=== PATIENT | female | born 1970 | race African-American/Black ===

== ENCOUNTER 2019-11-11 04:42 | Day surgery (SDC) | payer OTHER ==
[2019-11-10 13:20] VITALS: BMI 29.6
--- OUTSIDE RECORDS SUMMARY | 2019-11-11 04:46 | XMS ---
:1970 Author Organization [facility] Support Name Relationship Address Phone [facility] [place] [address] [facility] [address] [place] [address] JERED ORTA SON [address] [phone] [place] [address] Re-disclosure Warning The records that you are about to access may contain information from federally- assisted alcohol or drug abuse programs. If such information is present, then the following federally mandated warning applies: This information has been disclosed to you from records protected by federal confidentiality rules (42 CFR part 2). The federal rules prohibit you from making any further disclosure of this information unless further disclosure is expressly permitted by the written consent of the person to whom it pertains or as otherwise permitted by 42 CFR part 2. A general authorization for the release of medical or other information is NOT sufficient for this purpose. The Federal rules restrict any use of the information to criminally investigate or prosecute any alcohol or drug abuse patient.The records that you are about to access may contain highly sensitive health information, the redisclosure of which is protected by Article 27-F of the [facility] Public Health law. If you continue you may haveaccess to information: Regarding HIV / AIDS; Provided by facilities licensed or operated by the [facility] Office of Mental Health; or Provided by the [facility] Office for People With Developmental Disabilities. If such information is present, then the following [facility] mandated warning applies: This information has been disclosed to you from confidential records which are protected by state law. State law prohibits you from making any further disclosure of this information without the specific written consent of the person to whom it pertains, or as otherwise permitted by law. Any unauthorized further disclosure in violation of state law may result in a fine or prison sentence or both. A general authorization for the release of medical or other information is NOT sufficient authorization for further disclosure. Allergies and Adverse Reactions Type Description Substance Reaction Status Data Source(s ) Propensity to lamisil Propensity to itching Active eCW1 (Sa int adverse reactions adverse reactions [facility]) Propensity to lamisil Propensity to itching Active eCW1 (Sa int adverse reactions adverse reactions [facility]) Propensity to lamisil Propensity to itching Active eCW1 (Sa int adverse reactions adverse reactions [facility]) Encounters Encounter Providers Location Date Indications Data Source(s ) (SE) Echo Stress [address] 09/15/2019 e CW1 ([facility] (Echo) Echo [address] 08/18/2019 eCW1 ( [facility] Outpatient [address] 08/17/2019 eCW1 ([facility]:00 [facility] Medications Medication Brand Start Product Dose Route Administrative Pharmacy [facility] Indications Reaction Description Data Name Date Form Instructions Instructions Source(s) Tamsulosin Tamsul 1.0 active Tamsulosin eCW1 hydrochlori osin {caps HCl 0.4 MG ( [facility] de 0.4 MG HCl ule} [facility] 0.4 [facility] Tamsulosin [facility]) HCl 0.4 MG Tamsulosin Tamsul 1.0 active Tamsulosin eCW1 hydrochlori osin {caps HCl 0.4 MG ( [facility] 0.4 MG HCl ule} [facility] Oral 0.4 [facility] Tamsulosin [facility]) HCl 0.4 MG Tamsulosin Tamsul 1.0 active Tamsulosin eCW1 hydrochlori osin {caps HCl 0.4 MG ( [facility] de 0.4 MG HCl ule} [facility] Oral 0.4 [facility] Tamsulosin [facility]) HCl 0.4 MG Insurance Providers Payer name Policy type Policy ID Covered Covered republican's Policy P leodan / Coverage republican ID relationship to Rojas Inf ormation type rojas LOCAL [id number] [facility] Results ID Date Data Source [id number] 11/06/2019 08:10:00 AM EDT [facility] Name Value Range Interpretation Description Data Sup porting Code Source(s) Document(s ) SARS [facility] coronavirus 2 RNA This lab was ordered by [facility] and reported by [facility]. ID Date Data Source [id number] 11/03/2019 12:00:00 AM EDT [facility] Name Value Range Interpretation Code Description Data Sandi rce(s) Supporting Document(s ) SARS-COV-2 [facility] RNA [facility]P Diagnostics QL ROBB+PROBE [facility] and reported by [facility]. ID Date Data Source [id number] 08/14/2019 08:00:00 AM EDT [facility] Name Value Range Interpretation Description Data Sup porting Code Source(s) Document(s ) SARS [facility] CORONAVIRUS 2 RNA This lab was ordered by [facility] and reported by [facility]. Procedure Social History Code Duration Value Status Description Data Source(s ) Smoking 08/17/2019 12:00:00 Never Smoker completed Never Smoker e CW1 ([facility]) Smoking 08/17/2019 12:00:00 Never Smoker completed Never Smoker e CW1 ([facility]) Smoking 08/17/2019 12:00:00 Never Smoker completed Never Smoker e CW1 ([facility]) Never Smoker completed Never Smoker eCW1 ([facility]) Never Smoker completed Never Smoker eCW1 ([facility]) Never Smoker completed Never Smoker eCW1 ([facility]) Vital Signs ID Date Data Source UNK Name Value Range Interpretation Code Description Data Source(s) Diastolic blood 84 mm[Hg] 84 mm[Hg] eCW1 ([facility] pressure [facility]) Systolic blood 121 mm[Hg] 121 mm[Hg] eCW1 ([facility]) Oxygen saturation 98 % 98 % eCW1 ([facility] in Arterial blood [facility] by Pulse oximetry [facility] e ) Body temperature 97.7 [degF] 97.7 [degF] eCW1 ( [facility]) Heart rate 77 /min 77 /min eCW1 ([facility]) Body mass index 33.10 kg/m2 33.10 kg/m2 eCW1 ([facility] (BMI) [Ratio] [facility]) Body weight 181 [lb_av] 181 [lb_av] eCW1 ([facility]) Body height 62 [in_i] 62 [in_i] eCW1 ([facility])
--- NOTE | 2019-11-11 11:44 | HP ---
History & Physical Update - History History: No Change - Physical Physical: No Change - Assessment Assessment: No Change - Plan Plan: No Change
--- NOTE | 2019-11-11 11:53 | OP ---
Operative Note - Note: Operative Date: 11/11/19 Pre-Operative Diagnosis: L ureteral calculus Operation: L ureteroscopic laser lithotripsy and JJ stent insertion Findings: L ureteral calculus Post-Operative Diagnosis: Same as Pre-op Surgeon: Sandoval Johnson Anesthesiologist/WATER SYSTEMS ENGINEER: Maritza Haywood Anesthesia: General Specimens Removed: L ureteral calculus Estimated Blood Loss (mls): 0 Drains & Tubes with Location: 6 fr 26 cm L JJ stent Operative Report Dictated: Yes
[2019-11-11] MEDS ORDERED: ceFAZolin SODIUM 1 GM VIAL IVPB ONE (12:10)
[2019-11-11] MEDS ORDERED: ceFAZolin SODIUM 1 GM VIAL ONE (12:17)
[2019-11-11] MEDS ORDERED: DEXAMETHASONE SOD PHOSPHATE 4 MG/1 ML VIAL ONE (12:18)
[2019-11-11] MEDS ORDERED: PROPOFOL 20 ML ONE (12:33)
[2019-11-11] MEDS ORDERED: KETOROLAC TROMETHAMINE 30 MG/1 ML VIAL ONE (12:43)
[2019-11-11] MEDS ORDERED: oxyCODONE HCL 5 MG TABLET PO PRN (14:09)
[2019-11-11] MEDS ORDERED: ONDANSETRON 4 MG/2 ML VIAL IVPUSH PRN (14:09)
[2019-11-11] MEDS ORDERED: LACTATED RINGERS SOLUTION 1,000 ML IV SCH (14:15)
[2019-11-11 14:55] VITALS: BP 120/80; PULSE 66; TEMP 97.1
--- NOTE | 2019-11-12 14:35 | OP ---
DATE OF OPERATION: 11/11/2019 PREOPERATIVE DIAGNOSIS: Left ureteral calculus. POSTOPERATIVE DIAGNOSIS: Left ureteral calculus. PROCEDURE: Left ureteroscopic laser lithotripsy and left double-J stent insertion. SURGEON: Sandoval Prasad MD RIP TAILER: None. ANESTHESIA: General via laryngeal mask. ANESTHESIOLOGIST: Maritza Haywood DO SPECIMENS: Right ureteral calculi. CULTURES: None. DRAINS: A 6-Zambian 26-cm left double-J stent. ESTIMATED BLOOD LOSS: None. COMPLICATION: None. PROCEDURE: Patient was brought in the operating room, placed on the operating table in the supine position. After administration of intravenous antibiotics, general anesthesia was administered via laryngeal mask and sequential compression devices were placed. Patient was placed in the dorsal lithotomy position. Vagina and perineum were prepped and draped in usual sterile manner. A 22-Zambian cystoscope was inserted into the bladder with the obturator in place. The obturator was removed and urine was evacuated. Cystoscopy was performed. This demonstrated no foreign bodies, tumors, stones, inflammation. Both ureteral orifices were in their usual location with diminished efflux on the left. The left ureteral orifice was cannulated with a 0.038 guidewire which with considerable difficulty was advanced to the level of the left renal pelvis which needed to be done under direct vision with the ureteroscope. Now the semirigid ureteroscope was inserted alongside the guidewire into the distal ureter where a large stone was visualized. Using a 365-micron laser fiber, laser lithotripsy was done until the stone was fragmented into minute pieces like dust and came out. Cystoscope was back-loaded and retrograde pyelogram was done, demonstrated mild left hydronephrosis. No extravasation of contrast. No additional filling defects. A 6-Zambian 26-cm left double-J stent was inserted over the guidewire under direct visual and fluoroscopic guidance leaving 1 coil in the renal pelvis and 1 coil in the bladder. The bladder was emptied. Instruments were removed and the stent was secured to her thigh with a suture and a Tegaderm. She tolerated the procedure well and was transferred to recovery in stable condition. PLAN: Will maintain stent for 1 week to allow the ureter to heal as the stone was impacted for quite a while and was quite edematous. SANDOVAL PRASAD M.D. [id number]
== END 2019-11-11 15:05 | disposition home or self-care (01) ==
LOC: JASU-SURG 04:42
PROVIDERS: ATTEND Urology
PROC: 0TF78ZZ Fragmentation in Left Ureter, Via Natural or Artificial Opening Endoscopic (ICD-10-PCS; principal; 2019-11-11 13:00)
PROC: 0T778DZ Dilation of Left Ureter with Intraluminal Device, Via Natural or Artificial Opening Endoscopic (ICD-10-PCS; 2019-11-11 13:00)
DX: N20.1 Calculus of ureter (principal)
CPT/HCPCS: 76000-TC-FY; 84703; 94760